=== PATIENT | female | born 1960 | race Caucasian/White ===

== ENCOUNTER 2018-06-25 19:20 | Inpatient (IN) | payer OTHER, BC ==
--- NOTE | 2018-06-25 19:53 | EDPHY ---
H & P Time Seen by Provider: 06/25/18 19:52 HPI/ROS: Chief complaint. Cough HPI. Patient is a 57-year-old female visiting from [place] with upper respiratory symptoms that began about a month ago. She was treated with Zithromax and seemed to get better. However she has been worse the past 2-3 days with cough and dyspnea on exertion. She uses an albuterol inhaler and has had some bloody sputum after the albuterol inhaler but otherwise has had a nonproductive cough. She has dyspnea on exertion. Slight fever. Nausea without vomiting or diarrhea or abdominal pain. She tells me she has a potassium way Star and has been taking extra potassium the last few days. She also has adrenal insufficiency and has been giving herself extra hydrocortisone. She has been traveling to [place] and in [place]. No known exposure to Infectious Disease. While in [place] she had 3 surgeries for osteomyelitis of the jaw ROS 10 systems were reviewed and negative with the exception of the elements mentioned in the history of present illness Past Medical/Surgical History: Low cortisol levels, hyper thyroid, pernicious anemia, osteomyelitis of the jaw Social History: , nonsmoker, no alcohol Smoking Status: Never smoked Physical Exam: General Appearance: Alert well-developed female moderate distress. Vital signs show temp 37.6 degrees, heart rate 117, respiratory rate 24 Eyes: Pupils equal and round no pallor or injection. ENT, tympanic membranes are normal. Pharynx without injection Respiratory: No retractions but tachypnea. Inspiratory expiratory rhonchi and possible rales on the right chest Cardiovascular: Regular rate and rhythm with tachycardia Gastrointestinal: Abdomen is soft and nontender, no masses, bowel sounds normal. Neurological: Awake and alert, sensory and motor exams grossly normal. Skin: Warm and dry, no rashes. Musculoskeletal: Neck is supple nontender. Extremities symmetrical, full range of motion. Psychiatric: Patient is oriented X 3, there is no agitation. Constitutional: Initial Vital Signs Temperature (C) 37.6 C 06/25/18 19:35 Heart Rate 117 H 06/25/18 19:35 Respiratory Rate 24 H 06/25/18 19:35 Blood Pressure 196/96 H 06/25/18 19:35 O2 Sat (%) 95 06/25/18 19:35 O2 Delivery Mode Room Air O2 (L/minute) 2 Allergies/Adverse Reactions: acetaminophen [From [place]] Allergy (Verified 06/25/18 19:42) ciprofloxacin [From Cipro] Allergy (Verified 06/25/18 19:42) codeine Allergy (Verified 06/25/18 19:42) epinephrine Allergy (Verified 06/25/18 19:42) gluten Allergy (Verified 06/25/18 19:42) hydrocodone [From [place]] Allergy (Verified 06/25/18 19:42) hydromorphone [From Dilaudid] Allergy (Verified 06/25/18 19:42) ibuprofen Allergy (Verified 06/25/18 19:42) latex Allergy (Verified 06/25/18 19:42) Penicillins Allergy (Verified 06/25/18 19:42) pineapple Allergy (Verified 06/25/18 19:42) prednisone Allergy (Verified 06/25/18 19:42) soy Allergy (Verified 06/25/18 19:42) Home Medications: Medication Instructions Recorded Albuterol 06/25/18 Robert Thyroid 06/25/18 Cytomel 06/25/18 Desmopressin 06/25/18 FOCALIN 06/25/18 Hydrocortisone 06/25/18 Naltrexone 06/25/18 Progesterone 06/25/18 Medical Decision Making - Diagnostics EKG Interpretation: EKG interpreted by me shows sinus tachycardia. Normal interval and axis. QRS is normal there is no significant ST elevation or depression. No arrhythmia. The rate is 105 Imaging Results: Imaging Impressions Chest X-Ray 06/25/18 20:08 Impression: Suspect bilateral pneumonia. Chest x-ray reviewed by me shows likely bilateral pneumonia Procedures: IV normal saline, monitor , oxygen supplementation DuoNeb updraft Septic workup ED Course/Re-evaluation: Troponin is normal, D-dimer is normal, lactate is normal. Patient test positive for flu A. She is given Tamiflu in the ED Re-evaluation at 9:45 p.m.. Patient and I discussed imaging and lab results. We discussed treatment plan including recommendation for admission. She expresses understanding and agreement I consulted and discussed case with Dr. Watt, hospitalist, who agrees to the admission - Data Points Laboratory Results: 06/25/18 06/25/18 06/25/18 20:52 20:52 20:48 POC Sodium 143 mEq/L mEq/L (135-145) POC Potassium 3.7 mEq/L mEq/L (3.3-5.0) POC Chloride 106.0 mEq/L mEq/L (97-110) POC Total CO2 25 mEq/L mEq/L (22-31) POC BUN 14 mg/dL mg/dL (7-23) POC Creatinine 0.8 mg/dL mg/dL (0.6-1.0) POC Glucose 104 mg/dL H mg/dL (70-100) POC Lactic Acid Ji 2.0 mmol/L mmol/L (0.7-2.1) POC Calcium 9.3 mg/dL mg/dL (8.5-10.4) POC Troponin I 0.02 ng/mL ng/mL (0.00-0.08) Medications Given: Discontinued Medications Albuterol/Ipratropium (Duoneb) 3 ml IH EDNOW ONE Stop: 06/25/18 20:08 Last Admin: 06/25/18 20:23 Dose: 3 ml Sodium Chloride (Ns) 1,000 mls @ 0 mls/hr IV ONCE ONE; Wide Open PRN Reason: Protocol Stop: 06/25/18 20:08 Last Admin: 06/25/18 20:45 Dose: 1,000 mls Point of Care Test Results: CBC CBC Collection Date 06/25/18 CBC Collection Time 20:40 WBC 8.33 RBC 4.96 HGB 13.6 HCT 42.8 PLT 290 Neut # 7.61 Neut 91.4 LYMPH # 0.47 LYMPH 5.6 MCV 86.3 Chemistry 06/25/18 06/25/18 20:52 20:48 POC Sodium 143 mEq/L mEq/L (135-145) POC Potassium 3.7 mEq/L mEq/L (3.3-5.0) POC Chloride 106.0 mEq/L mEq/L (97-110) POC Total CO2 25 mEq/L mEq/L (22-31) POC BUN 14 mg/dL mg/dL (7-23) POC Creatinine 0.8 mg/dL mg/dL (0.6-1.0) POC Glucose 104 mg/dL H mg/dL (70-100) POC Calcium 9.3 mg/dL mg/dL (8.5-10.4) POC Troponin I 0.02 ng/mL ng/mL (0.00-0.08) Blood Gas/Lactic Acid-Venous 06/25/18 20:52 POC Lactic Acid Ji 2.0 mmol/L mmol/L (0.7-2.1) D-Dimer D-Dimer Collection Date 06/25/18 D-Dimer Collection Time 20:40 D-Dimer (ng/ml) 100 Influenza PCR Flu Nasal Swab Collection Date 06/25/18 Flu Nasal Swab Collection Time 21:06 Influenza A Result Detected Influenza B Result Not Detected Departure - Departure Disposition: [facility] Inpatient Acute Clinical Impression: Influenza A Condition: Fair Referrals: NONE *PRIMARY CARE P,. [Primary Care Provider] - As per Instructions
[2018-06-25] MEDS ORDERED: IPRATROPIUM/ALBUTEROL 3 ML DEYVIAL IH ONE (20:07)
[2018-06-25] MEDS ORDERED: NS 1,000 ML IV ONE (20:07)
[2018-06-25] MEDS ORDERED: OSELTAMIVIR PHOSPHATE 75 MG CAP PO ONE (21:53)
--- NOTE | 2018-06-25 22:25 | CPEKG ---
Test Reason : OPEN Blood Pressure : / mmHG Vent. Rate : 105 BPM Atrial Rate : 106 BPM P-R Int : 153 ms QRS Dur : 081 ms QT Int : 331 ms P-R-T Axes : 059 029 051 degrees QTc Int : 438 ms Sinus tachycardia Probable left atrial enlargement Abnormal R-wave progression, early transition Confirmed by Lincoln Yee ([id number]) on 06/25/2018 10:24:22 PM Referred By: LINCOLN YEE Confirmed By:Lincoln Yee
[2018-06-25] MEDS ORDERED: traMADol 50 MG TAB PO ONE (23:00)
[2018-06-25] MEDS ORDERED: traMADol 50 MG TAB ONE (23:04)
[2018-06-26] MEDS ORDERED: ONDANSETRON DISINTEGRATING 4 MG TAB PO PRN (00:50)
[2018-06-26] MEDS ORDERED: diphenhydrAMINE 25 MG CAP PO PRN (00:50)
[2018-06-26] MEDS ORDERED: ONDANSETRON 4 MG/2 ML VIAL IVP PRN (00:50)
[2018-06-26] MEDS ORDERED: NS 1,000 ML IV SCH (01:00)
[2018-06-26] MEDS: HOMEOPATHIC PO PRN ×4 (03:01→10:15)
[2018-06-26] MEDS: traMADol 50 MG TAB PO PRN ×2 (03:08→10:17)
[2018-06-26] MEDS ORDERED: LORazepam 0.5 MG TAB PO PRN (04:17)
[2018-06-26] MEDS ORDERED: NAPROXEN SODIUM 220 MG TAB PO PRN (04:19)
[2018-06-26] MEDS ORDERED: THYROID 60 MG TAB PO SCH (04:30)
[2018-06-26] MEDS ORDERED: PROGESTERONE,MICR 100 MG CAP PO SCH ×2 (04:30→21:00)
[2018-06-26 05:36] LABS: PLATELET COUNT 252 10^3/uL (150-400)
--- NOTE | 2018-06-26 06:37 | GHP ---
[f rep st] HISTORY AND PHYSICAL DATE OF ADMISSION: 06/25/2018 Patient's PCP from out of state at [facility]. SOURCE: Patient provides history, appears reliable. EMR was reviewed and case discussed with accept [facility] hospitalist. CHIEF COMPLAINT: Shortness of breath and cough. HISTORY OF PRESENT ILLNESS: This is a pleasant 57-year-old female with a past medical history signif icant for adrenal insufficiency on a continuous hydrocortisone pump infusion, hypothyroidism, pernici ous anemia, recent hospitalization in [place] for osteomyelitis of the jaw with washout x3, who is tr aveling from [place] with a stop in [place] to see her daughter while she is on her route back to [facility]. The patient reports that she has been experiencing upper respiratory type symptoms for the past month. She did receive a ten-day course of azithromycin. Patient reports that she contract ed pneumonia following her second surgery on her jaw. She had developed osteomyelitis and required w ashout and resection. The patient reports acutely in the last 2-3 days that she has developed a coug h, dyspnea on exertion, and had one episode of blood-tinged sputum. Otherwise, she denies any produc tive cough. She does note that she has coughing fits that make it quite difficult to breathe. She r eports subjective fevers and nausea, but no vomiting, diarrhea, or abdominal pain. Patient reports t hat she has increased her hydrocortisone dosing to stress dosing approximately 350 mg daily through h er pump. 15 mg/hour. REVIEW OF SYSTEMS: Ten systems reviewed, negative except as noted above. ALLERGIES: Multiple including acetaminophen, ciprofloxacin patient developed tendinopathy, codeine, epinephrine, gluten, hydrocodone, hydromorphone, ibuprofen, latex, penicillins, pineapple, prednisone , and soy. The patient reports that she develops anaphylaxis to all IV blood pressure medications. Of note, patient reports that she previously tolerated cephalosporin without any issue. She was also placed on daily Rocephin via [facility] for her osteomyelitis. The patient also takes tramadol for her corinne n. PAST MEDICAL HISTORY: Significant for adrenal insufficiency with continuous hydrocortisone infusion on an insulin subcu pump, chronic babesiosis, hypothyroidism, pernicious anemia, osteomyelitis of the jaw, status post washout through sections and IV antibiotics, asthma, pneumonia, chronic lung diseas e for which patient is followed by Pulmonology in [place]. PAST SURGICAL HISTORY: Significant for bronchoscopy, lung biopsy, CT-guided I and D of the jaw for o steomyelitis, tonsillectomy, adenoidectomy, D and C multiple, left metacarpal . FAMILY HISTORY: Negative for lung disease. SOCIAL HISTORY: Patient is . She resides in [place], traveling with her . Tabatha uriarte lives here in [place]. She does not smoke or utilize any illicit drugs or marijuana . She drinks only occasionally. CODE STATUS: Full. PHYSICAL EXAMINATION: VITAL SIGNS: Upon arrival to the emergency department, blood pressure 196/96, heart rate 115, respiratory rate 24, O2 saturation 95% on room air, temperature 37.6. Vitals [facility] available: Blood pressure is 175/94, heart rate is 86, respiratory rate is 17, O2 saturation 96% on room air with temperature 36.9. GENERAL: No acute distress, pleasant, obese female is lying in bed, awake. HEAD: Normocephalic, atraumatic. EYES: Extraocular muscles grossly intact. Pupils eq ual, round, decreased reactive to light bilaterally, but symmetric. No scleral icterus, conjunctival injection. ENT: Mucous membranes appear moist. No oropharyngeal erythema or exudates. Dentition intact. NECK: Supple. Trachea midline. CV: Sinus tach low 90s with regular rhythm. RESPIRATORY: Patient with some coarse breath sounds bibasilarly. Diminished throughout. Intermittent congested -sounding cough without production. ABDOMEN: Obese, soft, nontender to palpation, no rebound, guard ing, or masses appreciated. : No suprapubic tenderness to palpation. No Romero catheter in place. MUSCULOSKELETAL: Generalized deconditioning, but moves all extremities while lying in bed. NEUROL OGIC: Grossly nonfocal. Moves all extremities. PSYCH: Affect slightly flat, but patient is pleasa nt, cooperative, awake, alert, and oriented x4. LABORATORY STUDIES: WBC 6.61, H and H are 12.5 and 39.6, MCV 87.6, platelet count is 252. Point of care sodium is 143, potassium 2.7, chloride is 106, CO2 is 25, BUN is 14, creatinine is 0.8, glucose 104, lactic 2.0, calcium is . Troponin 0.02. Initial CBC from [facility], WBC is 8.33, H and H a re 4.96 and 13.6, platelet count is 290, neutrophil percent 91.4%. Procalcitonin and repeat BMP are pending. Chest x-ray: Report reviewed showing bilateral pneumonia, mildly enlarged cardiac silhouet te. No effusions or pneumothorax. EKG reviewed myself showing sinus tachycardia in the 100s. QTc is 438. No acute ST changes. Flu A positive at [facility]. ASSESSMENT AND PLAN: Pleasant 57-year-old female with multiple medical issues who presents to the em ergency department today with complaints of cough, fever, and shortness of breath. 1. Influenza A. patient started on Tamiflu. We will plan to continue. She does have bilateral inf iltrates, which could be viral pneumonia. Will plan to repeat patient's laboratory studies this morn ing as well as a procalcitonin. She has no white count. Vitals are otherwise stable. Hold off on a ntibiotic therapy. Patient did just complete a course of azithromycin following hospital-acquired pn eumonia following her surgery. Patient without any hypoxia. 2. Asthma with exacerbation. The patient has increased her hydrocortisone dosing to 50 mg/hour. Wi ll continue with nebulizer treatments and Tamiflu as noted above. 3. Hypoxia. Continue with supplemental oxygen if needed. 4. Adrenal insufficiency. Patient has already increased her dosing to stress dose steroids as noted above. 5. Multiple allergies. The patient reports a brief history of mast cell activation issues particula rly in the setting of being given IV antihypertensives. She currently refuses any treatment for her elevated blood pressures, but she did note that as far as antibiotics go, she is able to tolerate cep halosporins as she just completed a course of Rocephin for her necrosis of the jaw. She also reports she developed red man syndrome with vancomycin and tendinopathy with ciprofloxacin but is able to to lerate minocycline and cephalosporins and azithromycin with additional options of antibiotic therapy if needed. 6. Hypothyroidism. Continue replacement. 7. Adrenal insufficiency. Continue patient's pump as noted above as well as resume her supporting m edications including progesterone and DDAVP. 8. Chronic pain. Resume naloxone when the patient's home medications are available given her dosing adjustments, multiple medications are compounded. Will plan to monitor patient's electrolytes close ly, replacement as needed. 9. Recent history of osteomyelitis of the jaw, status post washout and course of antibiotics. Chandu nue to monitor for any signs of infection recurrence. 10. Fluid, electrolyte, nutrition. Continue with some gentle IV fluid hydration. Monitor patient's electrolytes closely and sodium as noted above. Diet as tolerated. 11. Prophylaxis. SCDs. Patient declines anticoagulation as she reports increased bleeding risk. 12. Code status full. DISPOSITION: Patient admitted to inpatient status on the [facility] floor for close respiratory monitor ing and continued treatment in setting of patient's multiple chronic medical issues in setting of inf luenza infection. /[id number]/MODL
[2018-06-26] MEDS ORDERED: OSELTAMIVIR PHOSPHATE 75 MG CAP PO SCH (08:00)
[2018-06-26] MEDS ORDERED: ENOXAPARIN 40 MG/0.4 ML SYR SC SCH (09:00)
[2018-06-26] MEDS ORDERED: DESMOPRESSIN 0.1 MG TAB PO SCH ×2 (09:00→21:00)
[2018-06-26] MEDS ORDERED: traMADol 50 MG TAB PO PRN (09:32)
[2018-06-26] MEDS ORDERED: LORazepam 1 MG TAB PO PRN (09:32)
[2018-06-26] MEDS ORDERED: BENZONATATE 100 MG CAP PO PRN (09:35)
[2018-06-26] MEDS ORDERED: IPRATROPIUM/ALBUTEROL 3 ML DEYVIAL IH PRN (09:38)
[2018-06-26] MEDS ORDERED: CYANO/VITAMIN B12 1000 MCG/ML VIAL IM SCH (09:45)
[2018-06-26] MEDS ORDERED: NALTREXONE PO SCH (09:45)
[2018-06-26] MEDS ORDERED: DEXMETHYLPHENIDATE HCL 10 MG PO SCH (12:00)
[2018-06-26 12:19] VITALS: BP 163/92
--- NOTE | 2018-06-26 14:28 | ASDISCHSUM ---
Discharge Information Plan Status:Home with No Needs Medically Cleared to Leave: Discharge Date:06/26/2018 01:20 PM CM D/C Disposition:Home, Routine, Self-Care ADT D/C Disposition:Home, Routine, Self-Care Projected Discharge Date:06/26/2018 12:00 AM Transportation at D/C: Discharge Delay Reason: Follow-Up Date:06/26/2018 12:00 AM Discharge Slot: Final Diagnosis: Placement Information Patient Contact Information Contact Name:CHER Relationship:Daughter Address: Home Phone: City: [facility] Phone: [facility]/Zip Code: Email: Financial Information Financial Class:Medicare Primary Plan Desc:MEDICARE INPATIENT Primary Plan Number:[id number] Secondary Plan Desc: OUT OF [facility] Secondary Plan Number:[id number] Assessment Information Case Management Discharge Plan Note Case Management Discharge Discharge Order Complete? Answers: Yes Patient to Obtain Answers: via Family Medications Transportation Arranged Answers: Family/Friends Discharge Comments Notes: Pt treated for influenza and pnemonia. She is being discharged independently, family to transport. Date Signed: 06/26/2018 02:27 PM Electronically Signed By:ALLEN Armenta Intervention Information
--- NOTE | 2018-06-26 14:28 | ASMTLACE ---
LACE Length of stay for Answers: Less than 1 day current admission Acuity / Level of Answers: Yes Care: Did the patient have an inpatient admission? Comorbidities - select Answers: Opioid dependence all that apply / Chronic pain Other Notes: Hypothyroid # of Emergency department Answers: 1-2 visits in the last 6 months Score: 9 Date Signed: 06/26/2018 02:27 PM Electronically Signed By:ALLEN Armenta
--- NOTE | 2018-06-26 15:41 | GDS ---
[f rep st] DISCHARGE SUMMARY DISCHARGE DIAGNOSES: 1. Influenza A. 2. Adrenal insufficiency on continuous hydrocortisone infusion. 3. Chronic babesiosis. 4. Hypothyroid. 5. Pernicious anemia. 6. Osteomyelitis of the jaw status post washout and resections and intravenous antibiotics. 7. Asthma. 8. Pneumonia. 9. Chronic lung disease, followed by a wordpress developer in [place]. HISTORY OF PRESENT ILLNESS: A 57-year-old female with adrenal insufficiency on continuous hydrocortisone infusion, hypothyroidism, pernicious anemia, and recent hospitalization in [place] for osteomyelitis of the jaw status post washout x3. She was traveling from [place] with a stop in [place] to see her daughter. She then developed upper respiratory infections. She completed a 10 course of azithromycin. She said she contacted pneumonia following her 2nd surgery. Acutely, she reports cough and dyspnea on exertion for the past 2-3 days. One episode of blood-tinged sputum. Reports subjective fevers and nausea. HOSPITAL COURSE BY PROBLEM: 1. Influenza A: She was started on Tamiflu. She declined prescription at discharge. I did recommend given immunosuppression with chronic steroids, but she would like to do homeopathic treatment. She had bilateral infiltrates which were more consistent with a viral pneumonia confirmed by normal procalcitonin. 2. Asthma with exacerbation: She increased her hydrocortisone dosing to 50 mg an hour. She had some relief with the nebulizer treatment. 3. Acute hypoxic insufficiency: She is now stable on room air. 4. Adrenal insufficiency: Continue her steroid pump. 5. Hypothyroidism: [place] 6. Chronic pain: Resume home medications. 7. Recent osteomyelitis of the jaw: Status post washout and antibiotics. 8. Disposition: Patient would like to be discharged home with family. She is stable. NEW MEDICATIONS: None. FOLLOWUP: 1. Per wordpress developer. 2. Primary care physician. PHYSICAL EXAMINATION: Today, VITAL SIGNS: Temperature 37.2, blood pressure 163 /92, heart rate in the 90s, respirations 18, 92% on room air. GENERAL: Sitting up in bed, appears much brighter now compared to this morning. HEENT: PERRLA. Moist mucous membranes. CV: Regular rate and rhythm. LUNGS: Moving good air. Occasional wheeze. ABDOMEN: Soft, nontender, nondistended. Positive bowel sounds. : No Romero. MUSCULOSKELETAL: 5/5 upper and lower extremity strength. NEURO: 2 through 12 intact. PSYCH: Alert and oriented x3. TIME SPENT ON DISCHARGE: Greater than 30 minutes coordinating discharge, discussing followup plan and medications with patient. Daughter was at bedside. /[id number]/MODL [place]
[2018-06-26] MEDS ORDERED: Naltrexone 4.5mg 4.5 MG PO SCH (21:00)
[2018-06-27] MEDS ORDERED: THYROID 60 MG TAB PO SCH (06:00)
--- NOTE | 2018-06-27 16:27 | PDMN ---
Medical Necessity Medical necessity: Pt meets IP criteria per MD & MCG MG-SIC Systemic or Infectious Condition; est los >2 mn for eval/tx of Influenza A w/tachycardia, tachypnea, possible pneumonia & asthma exacerbation; requiring further monitoring, follow-up labs, IVFs & respiratory supportive care; hx recent osteomyelitis of jaw s/p washout on abx followed by recent pneumonia, adrenal insufficiency on continuous hydrocortisone pump infusion; per order & H&P 06/26/18
== END 2018-06-26 13:20 | disposition home or self-care (01) | DRG 194 ==
LOC: CED 19:20 → CEDHOLD 22:01 → F3E 06-26 00:25
PROVIDERS: ADMIT Internal Medicine; ATTEND Internal Medicine
DX: J10.08 Influenza due to other identified influenza virus with other specified pneumonia (principal); J45.901 Unspecified asthma with (acute) exacerbation; J12.9 Viral pneumonia, unspecified; E27.40 Unspecified adrenocortical insufficiency; B60.0 Babesiosis; R09.02 Hypoxemia; J98.4 Other disorders of lung; G89.29 Other chronic pain; D51.0 Vitamin B12 deficiency anemia due to intrinsic factor deficiency; E03.9 Hypothyroidism, unspecified; Z79.52 Long term (current) use of systemic steroids; Z79.51 Long term (current) use of inhaled steroids
CPT/HCPCS: 71046-PO; 80048-ER; 83605-ER; 84484-ER; 96360-ER

== ENCOUNTER 2018-06-27 17:43 | Inpatient (IN) | payer OTHER, BC ==
[2018-06-27] MEDS ORDERED: AZITHROMYCIN IV 500 MG in NS 250 ML IV ONE (18:25)
--- NOTE | 2018-06-27 18:30 | EDPHY ---
H & P Time Seen by Provider: 06/27/18 18:04 HPI/ROS: CHIEF COMPLAINT: "I am getting worse" HISTORY OF PRESENT ILLNESS: The patient is a 57-year-old female with a history of adrenal insufficiency on continuous hydrocodone infusion (increased distress dose), recent diagnosis of influenza a and bilateral infiltrates on chest x- ray. Patient was initially seen at [facility]. She was sent to [facility] and admitted overnight. Initially the doctor told her that she would need be placed on antibiotics. However, the morning hospitalist performed a procalcitonin level and told the patient that she did not need antibiotics. Patient states that since discharge she has been worsening. She has had increasing shortness of breath. Increased fatigue. She describes body aches. No nausea or vomiting. REVIEW OF SYSTEMS: 10 systems were reveiwed and are negative with the exception of the elements mentioned in the history of present illness. Past Medical/Surgical History: Includes influenza a, adrenal insufficiency on chronic hydrocortisone infusion, chronic babesiosis, hypothyroid, pernicious anemia, osteomyelitis, asthma, pneumonia Smoking Status: Never smoked Physical Exam: Vitals noted. Tachycardic GENERAL: Mild acute distress, alert. HEENT: Eyes normal to inspection, normal pharynx, no signs of dehydration. NECK: Normal, supple. RESPIRATORY: Scattered wheezing. No rales or rhonchi. No accessory muscle use. CVS: Regular rate and rhythm, no rubs, murmurs, or gallops. ABDOMEN: Soft, nontender, nondistended, no organomegaly. BACK: Normal to inspection, no CVA tenderness. SKIN: Normal color, no rash, warm, dry. No pallor. EXTREMITIES: No pedal edema, no calf tenderness, no Homans sign or cords, no joint swelling. NEURO/PSYCH: Alert and oriented, normal mood and affect, normal motor sensory exam. Constitutional: Initial Vital Signs Temperature (C) 37 C 06/27/18 17:50 Heart Rate 120 H 06/27/18 17:50 Respiratory Rate 19 06/27/18 17:50 Blood Pressure 191/103 H 06/27/18 17:50 O2 Sat (%) 93 06/27/18 17:50 O2 Delivery Mode Room Air Allergies/Adverse Reactions: acetaminophen [From [place]] Allergy (Verified 06/26/18 08:53) Anaphylaxis ciprofloxacin [From Cipro] Allergy (Verified 06/26/18 08:53) Rash/Tendon Rupture codeine Allergy (Verified 06/26/18 08:53) Fever/Rash epinephrine Allergy (Verified 06/26/18 08:53) Uncontrolablle Shakes gluten Allergy (Verified 06/25/18 19:42) hydrocodone [From [place]] Allergy (Verified 06/26/18 08:53) Anaphylaxis hydromorphone [From Dilaudid] Allergy (Verified 06/26/18 08:53) Other-Enter Comments ibuprofen Allergy (Verified 06/25/18 19:42) latex Allergy (Verified 06/26/18 08:53) Anaphylaxis Penicillins Allergy (Verified 06/26/18 08:53) Anaphylaxis pineapple Allergy (Verified 06/25/18 19:42) prednisone Allergy (Verified 06/26/18 08:53) Other-Enter Comments soy Allergy (Verified 06/25/18 19:42) lobster Allergy (Uncoded 06/26/18 08:53) Home Medications: Medication Instructions Recorded Albuterol [Proventil Inhaler HFA 1 - 2 puffs IH Q4H PRN 06/25/18 (*)] Desmopressin [DDAVP 0.1 mg (*)] 0.1 mg PO DAILY 06/25/18 Dexmethylphenidate HCl [FOCALIN XR] 10 mg PO BID@,12 06/25/18 Progesterone, Micronized 100 mg PO HS 06/25/18 [Progesterone] Thyroid [Katy Thyroid 60 MG (*)] 180 mg PO DAILY06 06/25/18 Advair Hfa 230-21 2 puffs IH BID 06/26/18 Cyanocobalamin [Vitamin B12 1,000 mcg IM .2XWEEK 06/26/18 1000MCG/ML (*)] Desmopressin [DDAVP 0.1 mg (*)] 0.2 mg PO HS 06/26/18 LORazepam [Ativan (*)] 1 mg PO HS PRN 06/26/18 Naltrexone 4.5mg 2.5 mg PO DAILY 06/26/18 Naltrexone 4.5mg 4.5 mg PO HS 06/26/18 Potassium Cl [Klor-Con 20 meq (*)] 6 - 12 tab PO AD 06/26/18 traMADol [Ultram 50 mg (*)] 50 mg PO Q6HRS PRN 06/26/18 Medical Decision Making - Diagnostics Imaging Results: Imaging Impressions Chest X-Ray 06/27/18 18:23 Impression: Interval increase in diffuse multifocal bilateral airspace consolidation. ED Course/Re-evaluation: The in the emergency department I discussed possible etiologies with the patient. I answered all her questions. Laboratory studies and chest x-ray were ordered. An IV was placed. Patient given normal saline 1 L IV for hydration. Due the patient wheezing a DuoNeb was ordered. Patient is currently on her hydrocortisone pump. She is currently taking stress dose hydrocortisone. Repeat vital signs. Blood pressure 166/109, 104, 24, 94% on room air Differential Diagnosis: My differential includes but is not limited to pneumonia, bronchitis, influenza , bacteremia, sepsis, dehydration, hypoxia - Data Points Laboratory Results: Laboratory Results 06/27/18 18:30 06/27/18 06/27/18 06/27/18 18:40 18:30 18:30 WBC RBC Hgb Hct MCV MCH MCHC RDW Plt Count MPV Neut % (Auto) Lymph % (Auto) [place] % (Auto) Eos % (Auto) Baso % (Auto) Nucleat RBC Rel Count Absolute Neuts (auto) Absolute Lymphs (auto) Absolute Monos (auto) Absolute Eos (auto) Absolute Basos (auto) Absolute Nucleated RBC Immature Gran % Immature Gran # Platelet Estimate PT 12.2 SEC SEC (12.0-15.0) INR 0.94 (0.83-1.16) APTT 24.6 SEC SEC (23.0-38.0) VBG Lactic Acid Sodium Pending Potassium Pending Chloride Pending Carbon Dioxide Pending Anion Gap Pending BUN Pending Creatinine Pending Estimated GFR Pending Glucose Pending Calcium Pending Total Bilirubin Pending POC Troponin I 0.02 ng/mL ng/mL (0.00-0.08) Troponin I Pending 06/27/18 06/27/18 18:30 18:30 WBC 4.78 10^3/uL 10^3/uL (3.80-9.50) RBC 5.19 10^6/uL 10^6/uL (4.18-5.33) Hgb 14.1 g/dL g/dL (12.6-16.3) Hct 43.2 % % (38.0-47.0) MCV 83.2 fL fL (81.5-99.8) MCH 27.2 pg L pg (27.9-34.1) MCHC 32.6 g/dL g/dL (32.4-36.7) RDW 13.9 % % (11.5-15.2) Plt Count 252 10^3/uL 10^3/uL (150-400) MPV 8.6 fL L fL (8.7-11.7) Neut % (Auto) Pending Lymph % (Auto) Pending [place] % (Auto) Pending Eos % (Auto) Pending Baso % (Auto) Pending Nucleat RBC Rel Count Pending Absolute Neuts (auto) Pending Absolute Lymphs (auto) Pending Absolute Monos (auto) Pending Absolute Eos (auto) Pending Absolute Basos (auto) Pending Absolute Nucleated RBC Pending Immature Gran % Pending Immature Gran # Pending Platelet Estimate Pending PT INR APTT VBG Lactic Acid 2.1 mmol/L mmol/L (0.7-2.1) Sodium Potassium Chloride Carbon Dioxide Anion Gap BUN Creatinine Estimated GFR Glucose Calcium Total Bilirubin POC Troponin I Troponin I Medications Given: Discontinued Medications Albuterol/Ipratropium (Duoneb) 3 ml IH EDNOW ONE Stop: 06/27/18 18:35 Last Admin: 06/27/18 18:47 Dose: 3 ml Ceftriaxone Sodium/Dextrose (Rocephin 1 Gm (Premix)) 50 mls @ 100 mls/hr IV EDNOW ONE PRN Reason: Protocol Stop: 06/27/18 18:53 Last Admin: 06/27/18 18:47 Dose: 50 mls Sodium Chloride (Ns) 1,000 mls @ 0 mls/hr IV ONCE ONE PRN Reason: Wide Open Stop: 06/27/18 18:33 Last Admin: 06/27/18 18:47 Dose: 1,000 mls Point of Care Test Results: Chemistry 06/27/18 18:40 POC Troponin I 0.02 ng/mL ng/mL (0.00-0.08) Departure - Departure Disposition: [facility] Inpatient Acute Clinical Impression: Influenza A Condition: Fair Referrals: LUIS SALCIDO [Other] - As per Instructions
[2018-06-27] MEDS ORDERED: NS 1,000 ML IV ONE (18:32)
[2018-06-27] MEDS ORDERED: IPRATROPIUM/ALBUTEROL 3 ML DEYVIAL IH ONE (18:34)
[2018-06-27 18:49] LABS: PLATELET COUNT 252 10^3/uL (150-400)
[2018-06-27 18:58] LABS: INR 0.94 (0.83-1.16); PROTIME(PATIENT) 12.2 SEC (12.0-15.0)
[2018-06-27] MEDS ORDERED: ACETAMINOPHEN 325 MG TAB PO PRN (19:43)
--- NOTE | 2018-06-27 19:58 | PDGENHP ---
History and Physical - Chief Complaint Cough, SOB., Fatigue - History of Present Illness Mari Velazco is a 57 yo F with a PMHx of adrenal insufficiency on continuous IV steroid infusion, recent Influenza A admitted 06/25-06/26, hypothyroidism, asthma who presents to [facility] for worsening SOB, cough, and fatigue. As above patient was just discharged from [facility] yesterday after being diagnosed with the flu. She was not discharged on Tamiflu or antibiotics (procalcitonin was negative at that time). She reports since discharge her symptoms have been worsening so she returned to ED this afternoon. She states she has been having increasing shortness of breath, body aches, productive cough, and worsening fatigue. She denies any chest pain, palpitations, edema, d/c, n/v. History Information - Allergies/Home Medication List Allergies/Adverse Reactions: acetaminophen [From [place]] Allergy (Verified 06/26/18 08:53) Anaphylaxis ciprofloxacin [From Cipro] Allergy (Verified 06/26/18 08:53) Rash/Tendon Rupture codeine Allergy (Verified 06/26/18 08:53) Fever/Rash epinephrine Allergy (Verified 06/26/18 08:53) Uncontrolablle Shakes gluten Allergy (Verified 06/25/18 19:42) hydrocodone [From [place]] Allergy (Verified 06/26/18 08:53) Anaphylaxis hydromorphone [From Dilaudid] Allergy (Verified 06/26/18 08:53) Other-Enter Comments ibuprofen Allergy (Verified 06/25/18 19:42) latex Allergy (Verified 06/26/18 08:53) Anaphylaxis Penicillins Allergy (Verified 06/26/18 08:53) Anaphylaxis pineapple Allergy (Verified 06/25/18 19:42) prednisone Allergy (Verified 06/26/18 08:53) Other-Enter Comments soy Allergy (Verified 06/25/18 19:42) lobster Allergy (Uncoded 06/26/18 08:53) Home Medications: Albuterol [Proventil Inhaler HFA (*)] 1 - 2 puffs IH Q4H PRN 06/25/18 [Last Taken Unknown] Desmopressin [DDAVP 0.1 mg (*)] 0.1 mg PO DAILY 06/25/18 [Last Taken 06/25/18] Dexmethylphenidate HCl [FOCALIN XR] 10 mg PO BID@06,12 06/25/18 [Last Taken 09/08 12:00] Progesterone, Micronized [Progesterone] 100 mg PO HS 06/25/18 [Last Taken ] Thyroid [Keller Thyroid 60 MG (*)] 180 mg PO DAILY06 06/25/18 [Last Taken ] Advair Hfa 230-21 2 puffs IH BID 06/26/18 [Last Taken 06/25/18] Cyanocobalamin [Vitamin B12 1000MCG/ML (*)] 1,000 mcg IM .2XWEEK 06/26/18 [Last Taken Unknown] Desmopressin [DDAVP 0.1 mg (*)] 0.2 mg PO HS 06/26/18 [Last Taken 06/24/18] LORazepam [Ativan (*)] 1 mg PO HS PRN 06/26/18 [Last Taken Unknown] Naltrexone 4.5mg 2.5 mg PO DAILY 06/26/18 [Last Taken 06/25/18] Naltrexone 4.5mg 4.5 mg PO HS 06/26/18 [Last Taken 06/24/18] Potassium Cl [Klor-Con 20 meq (*)] 6 - 12 tab PO AD 06/26/18 [Last Taken Unknown ] traMADol [Ultram 50 mg (*)] 50 mg PO Q6HRS PRN 06/26/18 [Last Taken 06/26/18] I have personally reviewed and updated: family history, medical history, social history, surgical history - Past Medical History asthma Additional medical history: Adrenal insufficiency, hypothyroidism - Surgical History Reports: no pertinent surgical hx - Family History Positive for: non-pertinent - Social History Smoking Status: Never smoked Review of Systems Review of Systems: ROS: 10pt was reviewed & negative except for what was stated in HPI & below Physical Exam Physical Exam: Temp Pulse Resp BP Pulse Ox 37 C 120 H 19 191/103 H 93 06/27/18 17:50 06/27/18 17:50 06/27/18 17:50 06/27/18 17:50 06/27/18 17:50 Constitutional: uncomfortable Eyes: PERRL Ears, Nose, Mouth, Throat: dry mucous membranes Cardiovascular: tachycardia, No JVD, No edema Respiratory: no respiratory distress, reduced air movement Gastrointestinal: soft, non-tender abdomen Skin: warm Musculoskeletal: full muscle strength Neurologic: AAOx3 Psychiatric: interacting appropriately Lab Data & Imaging Review 06/27/18 18:30 06/27/18 18:30 WBC 4.78 10^3/uL (3.80-9.50) 06/27/18 18:30 RBC 5.19 10^6/uL (4.18-5.33) 06/27/18 18:30 Hgb 14.1 g/dL (12.6-16.3) 06/27/18 18:30 Hct 43.2 % (38.0-47.0) 06/27/18 18:30 MCV 83.2 fL (81.5-99.8) 06/27/18 18:30 MCH 27.2 pg (27.9-34.1) L 06/27/18 18:30 MCHC 32.6 g/dL (32.4-36.7) 06/27/18 18:30 RDW 13.9 % (11.5-15.2) 06/27/18 18:30 Plt Count 252 10^3/uL (150-400) 06/27/18 18:30 MPV 8.6 fL (8.7-11.7) L 06/27/18 18:30 Neut % (Auto) 93.3 % (39.3-74.2) H 06/27/18 18:30 Lymph % (Auto) 4.2 % (15.0-45.0) L 06/27/18 18:30 [place] % (Auto) 2.1 % (4.5-13.0) L 06/27/18 18:30 Eos % (Auto) 0.0 % (0.6-7.6) L 06/27/18 18:30 Baso % (Auto) 0.0 % (0.3-1.7) L 06/27/18 18:30 Nucleat RBC Rel Count 0.0 % (0.0-0.2) 06/27/18 18:30 Absolute Neuts (auto) 4.46 10^3/uL (1.70-6.50) 06/27/18 18:30 Absolute Lymphs (auto) 0.20 10^3/uL (1.00-3.00) L 06/27/18 18:30 Absolute Monos (auto) 0.10 10^3/uL (0.30-0.80) L 06/27/18 18:30 Absolute Eos (auto) 0.00 10^3/uL (0.03-0.40) L 06/27/18 18:30 Absolute Basos (auto) 0.00 10^3/uL (0.02-0.10) L 06/27/18 18:30 Absolute Nucleated RBC 0.00 10^3/uL (0-0.01) 06/27/18 18:30 Immature Gran % 0.4 % (0.0-1.1) 06/27/18 18:30 Immature Gran # 0.02 10^3/uL (0.00-0.10) 06/27/18 18:30 RBC/WBC/PLT Morphology TNP 06/27/18 18:30 Platelet Estimate TNP 06/27/18 18:30 PT 12.2 SEC (12.0-15.0) 06/27/18 18:30 INR 0.94 (0.83-1.16) 06/27/18 18:30 APTT 24.6 SEC (23.0-38.0) 06/27/18 18:30 VBG Lactic Acid 2.1 mmol/L (0.7-2.1) 06/27/18 18:30 Sodium 137 mEq/L (135-145) 06/27/18 18:30 Potassium 4.2 mEq/L (3.5-5.2) 06/27/18 18:30 Chloride 100 mEq/L (97-110) 06/27/18 18:30 Carbon Dioxide 27 mEq/l (22-31) 06/27/18 18:30 Anion Gap 10 mEq/L (6-14) 06/27/18 18:30 BUN 15 mg/dL (7-23) 06/27/18 18:30 Creatinine 0.6 mg/dL (0.6-1.0) 06/27/18 18:30 Estimated GFR > 60 06/27/18 18:30 Glucose 195 mg/dL (70-100) H 06/27/18 18:30 Calcium 9.3 mg/dL (8.5-10.4) 06/27/18 18:30 Total Bilirubin 0.5 mg/dL (0.1-1.4) 06/27/18 18:30 POC Troponin I 0.02 ng/mL (0.00-0.08) 06/27/18 18:40 Troponin I 0.019 ng/mL (0.000-0.034) 06/27/18 18:30 Assessment & Plan Assessment: Bacterial Pneumonia - Presented with Influenza A on 06/25, found to have b/l infiltrates at that time - Given negative procalc on last admission, was not d/c on abx yesterday - CXR performed on this admission with worsening b/l infiltrates - Afebrile on admission, WBC 4.7 with neutrophil predominence, LA 2.1, tachycardic 120's, normotensive - S/p Ceftriaxone and Azithromycin in ED, will continue for now - Continue mIVF overnight Influenza A (Acute) - Positive on last admission - Started on Tamiflu however patient declined on discharge due to onset of symptoms >72 hours - Will hold off on Tamiflu for now, supportive care with IVF Tachycardia - In setting of CAP as above, not meeting other SIRS criteria - S/p 1L IVF bolus in ED, will continue IVF @ 100 ml/hr overnight - Continue to monitor Adrenal Insufficiency - Continue patient's home infusion Hypothyroidism - Continue home medications pending med rec Asthma - Reports mild, no wheezing appreciated on exam - Continue home Advair BID upon med rec - Will order nebulizers PRN FEN: mIVF, Regular DVT PPx: Lovenox Code: FULL Dispo: Admit to Medicine
[2018-06-27] MEDS ORDERED: NS 1,000 ML IV SCH (20:15)
[2018-06-27] MEDS ORDERED: LORazepam 1 MG TAB PO PRN (21:51)
[2018-06-27] MEDS ORDERED: ALBUTEROL 60 PUFFS/8 GM MDI IH PRN (21:51)
[2018-06-27] MEDS: ONDANSETRON 4 MG/2 ML VIAL IVP PRN (22:54)
[2018-06-27] MEDS: traMADol 50 MG TAB PO PRN (23:59)
[2018-06-28] MEDS: IPRATROPIUM/ALBUTEROL 3 ML DEYVIAL IH PRN ×4 (00:20→15:37)
[2018-06-28] MEDS: traMADol 50 MG TAB PO PRN ×3 (06:04→18:14)
[2018-06-28] MEDS: THYROID 60 MG TAB PO SCH (06:04)
[2018-06-28] MEDS: ENOXAPARIN 40 MG/0.4 ML SYR SC SCH (08:29)
[2018-06-28] MEDS: DEXMETHYLPHENIDATE HCL 10 MG PO SCH ×3 (08:35→12:16)
[2018-06-28] MEDS ORDERED: BENZONATATE 100 MG CAP PO PRN (08:37)
[2018-06-28] MEDS: ADVAIR IH SCH ×3 (08:56→21:35)
[2018-06-28] MEDS: NALTREXONE PO SCH ×2 (09:00→12:16)
[2018-06-28] MEDS ORDERED: hydrALAZINE 20 MG/ML VIAL IVP PRN (11:55)
[2018-06-28] MEDS: DESMOPRESSIN 0.1 MG TAB PO SCH ×2 (12:36→22:13)
--- NOTE | 2018-06-28 13:19 | PDMN ---
Medical Necessity Medical necessity: Pt meets IP criteria per & MCG M-282; est los >2 mn for eval/tx of bacterial pneumonia w/tachycardia, tachypnea, Influenza A & asthma exacerbation; admit for further monitoring, IV abx, IVFs & respiratory supportive care; hx recent hospitalization w/similar presentation-dc'd 06/26; recent osteomyelitis of jaw s/p washout on abx, adrenal insufficiency on continuous hydrocortisone pump infusion; per H&P & order 06/27/18
[2018-06-28] MEDS: NS 1,000 ML IV SCH (13:38)
[2018-06-28] MEDS: GUAIFENESIN/DM 10 ML UDCUP PO PRN ×3 (13:46→15:17)
--- NOTE | 2018-06-28 14:38 | HOSPPROG ---
Hospitalist Progress Note Assessment/Plan: #Viral vs. post-viral PNA -refused Tamiflu at last DC. Still not convinced bacterial given afebrile, no leukocytosis -rec short abx coverage. Counseled on C diff risks #Influenza A (Acute) - Positive on last admission - Started on Tamiflu however patient declined on discharge due to onset of symptoms >72 hours - Will hold off on Tamiflu for now, supportive care with IVF #Hypertensive urgency: SBP >220. She attributes to steroids. -declines antihypertensives. I counseled her on risks of CVA/ME and she accepts risks #Asthma exacerbation: Duonebs, Advair #Tachycardia - In setting of CAP as above, not meeting other SIRS criteria - S/p 1L IVF bolus in ED, will continue IVF @ 100 ml/hr overnight - Continue to monitor #Adrenal Insufficiency -has continuous pump; of runs out equivalent dose Solumedrol 60mg q8hr (pharm calculated) Hypothyroidism - Continue home medications pending med rec FEN: IVF, Regular DVT PPx: Lovenox Code: FULL inpatient admission for DuoNeb, telemetry Subjective: No CHAPPELL. Pressure over mid-chest Objective: Vital Signs Temp Pulse Resp BP Pulse Ox 36.6 C 106 H 14 204/114 H 92 06/28/18 11:38 06/28/18 11:38 06/28/18 11:38 06/28/18 14:16 06/28/18 11:38 06/27/18 06/28/18 06/29/18 05:59 05:59 05:59 Intake Total 1800 1257 Balance 1800 1257 PT 12.2 SEC (12.0-15.0) 06/27/18 18:30 INR 0.94 (0.83-1.16) 06/27/18 18:30 - Time Spent With Patient Time Spent with Patient: greater than 35 minutes Time Spent with Patient: Greater than 35 minutes spent on this patients care, greater than 50% of time spent counseling, educating, and coordinating care regarding the above mentioned plan. - Physical Exam Constitutional: obese Eyes: PERRL, other (jessy cheeks) Ears, Nose, Mouth, Throat: moist mucous membranes Cardiovascular: tachycardia Respiratory: no respiratory distress, No expiratory wheeze, No inspiratory crackles Gastrointestinal: normoactive bowel sounds, soft, non-tender abdomen Genitourinary: no bladder fullness Skin: warm Musculoskeletal: full muscle strength Neurologic: AAOx3, CN II-XII Intact Psychiatric: interacting appropriately ICD10 Worksheet Patient Problems: Problems Problem Status Onset Influenza A Acute
--- NOTE | 2018-06-28 16:35 | ASMTCMCOM ---
CM Note CM Note Notes: Spoke with pt and RN in the room. Pt here visiting daughter from [place] and admitted for influenza A and possible post viral PNA. Pt has steroid pump for Adrenal insufficiency. PT and OT both cleared pt for discharge home independently. CM to follow. D/C Plan: Independent to daughter's home Date Signed: 06/28/2018 04:34 PM Electronically Signed By:Dorcas Tolbert
[2018-06-28] MEDS ORDERED: AZITHROMYCIN IV 500 MG in NS 250 ML IV SCH (19:00)
[2018-06-28] MEDS ORDERED: POTASSIUM CL 20 MEQ TAB PO ONE (19:52)
[2018-06-28] MEDS: PROGESTERONE,MICR 100 MG CAP PO SCH (22:14)
[2018-06-28] MEDS ORDERED: ESTRIOL TP SCH (23:30)
[2018-06-28] MEDS ORDERED: TESTOSTERONE TP SCH (23:30)
[2018-06-28] MEDS ORDERED: ESTRADIOL TP SCH (23:30)
[2018-06-28] MEDS ORDERED: PROGESTERONE TP SCH (23:30)
[2018-06-28] MEDS: Naltrexone 4.5mg 4.5 MG PO SCH (23:56)
[2018-06-29] MEDS: IPRATROPIUM/ALBUTEROL 3 ML DEYVIAL IH PRN ×4 (05:01→23:12)
[2018-06-29] MEDS: GUAIFENESIN/DM 10 ML UDCUP PO PRN ×3 (05:37→23:06)
[2018-06-29] MEDS: DEXMETHYLPHENIDATE HCL 10 MG PO SCH ×2 (06:42→12:25)
[2018-06-29] MEDS: THYROID 60 MG TAB PO SCH (06:42)
[2018-06-29] MEDS ORDERED: PROTOCOL POTASSIUM 1 DOSE MISC PRN (07:14)
--- NOTE | 2018-06-29 08:22 | HOSPPROG ---
Hospitalist Progress Note Assessment/Plan: #Viral vs. post-viral PNA - afebrile, no leukocytosis -short course atbx. Counseled on C diff risks -check PCT #Influenza A (Acute) - diagnosed prior admission, received tamiflu which pt declined at dc, did not complete course - Defer tamiflu at this point - supportive care with IVF #Hypoxemia 2/2 above - 2 LPM, no respiratory distress - wean O2 as able #Hypertensive urgency: SBP >220. She attributes to steroids. Says she has anaphylaxis to all anti-hypertensives. - declines antihypertensives. She was counseled on risks of CVA/MN and she accepts risks #Asthma exacerbation: cont steroids, Duonebs, Advair #Tachycardia - ?due to PNA or possibly increased steroid dose, no other SIRS, hasn't improved much with IVF's - cont IVF's - check d dimer, CTA if positive to r/o PE - check TSH to ensure not overtreated as cause of tachycardia - Continue to monitor #Adrenal Insufficiency - on continuous solucortef pump, pt says she is giving herself stress dose - cont home pump Hypothyroidism - cont armour thyroid, check TSH FEN: IVF, Regular DVT PPx: Lovenox Code: FULL Dispo: cont inpt due to ongoing O2 needs, tachycardia and hypertension Subjective: Pt feels a little better today. Still SOB, endorses pleuritic pain. No CP or pressure. No fevers. Appetite not great, but improving. Objective: Vital Signs Temp Pulse Resp BP Pulse Ox 36.8 C 109 H 14 188/100 H 95 06/29/18 07:36 06/29/18 07:36 06/29/18 07:36 06/29/18 07:36 06/29/18 07:36 Laboratory Results 06/28/18 15:50 06/28/18 06/29/18 06/30/18 05:59 05:59 06:59 Intake Total 1800 1562 Output Total 1400 Balance 1800 162 PT 12.2 SEC (12.0-15.0) 06/27/18 18:30 INR 0.94 (0.83-1.16) 06/27/18 18:30 - Physical Exam Constitutional: no apparent distress Eyes: PERRL Ears, Nose, Mouth, Throat: moist mucous membranes Cardiovascular: regular rate and rhythym Respiratory: no respiratory distress, inspiratory crackles Gastrointestinal: normoactive bowel sounds, soft, non-tender abdomen Skin: warm Musculoskeletal: full muscle strength Neurologic: AAOx3 Psychiatric: interacting appropriately ICD10 Worksheet Patient Problems: Problems Problem Status Onset Influenza A Acute
[2018-06-29] MEDS: ADVAIR IH SCH ×2 (08:32→22:57)
[2018-06-29] MEDS: NALTREXONE PO SCH (08:35)
[2018-06-29] MEDS: DESMOPRESSIN 0.1 MG TAB PO SCH ×2 (08:36→20:37)
[2018-06-29] MEDS: ENOXAPARIN 40 MG/0.4 ML SYR SC SCH ×2 (08:36→09:07)
[2018-06-29] MEDS: NS 1,000 ML IV SCH (09:13)
[2018-06-29] MEDS: ONDANSETRON DISINTEGRATING 4 MG TAB PO PRN ×2 (09:13→18:46)
[2018-06-29] MEDS ORDERED: IOPAMIDOL (ISOVUE 370) 100 ML BTL IV ONE (10:24)
[2018-06-29] MEDS ORDERED: POTASSIUM CL 20 MEQ TAB PO ONE (16:00)
[2018-06-29] MEDS ORDERED: POTASSIUM CL 20 MEQ/15 ML UDCUP PO ONE (17:15)
[2018-06-29] MEDS: traMADol 50 MG TAB PO PRN (18:45)
[2018-06-29] MEDS: PROGESTERONE,MICR 100 MG CAP PO SCH (20:36)
[2018-06-29] MEDS: AZITHROMYCIN IV 500 MG in NS 250 ML IV SCH (20:44)
[2018-06-29] MEDS: Naltrexone 4.5mg 4.5 MG PO SCH (20:57)
[2018-06-30] MEDS ORDERED: HYDROCORTISONE 100 MG/2 ML VIAL IVP ONE (03:08)
[2018-06-30] MEDS: NS 1,000 ML IV SCH (03:47)
[2018-06-30] MEDS: IPRATROPIUM/ALBUTEROL 3 ML DEYVIAL IH PRN ×2 (04:15→08:18)
[2018-06-30] MEDS: DEXMETHYLPHENIDATE HCL 10 MG PO SCH ×2 (07:13→12:23)
[2018-06-30] MEDS: GUAIFENESIN/DM 10 ML UDCUP PO PRN (07:13)
[2018-06-30] MEDS ORDERED: POTASSIUM CL 20 MEQ/15 ML UDCUP PO ONE (07:45)
[2018-06-30] MEDS: diphenhydrAMINE 25 MG CAP PO PRN ×2 (08:05→08:15)
[2018-06-30] MEDS: ADVAIR IH SCH ×2 (08:23→20:12)
[2018-06-30] MEDS: DESMOPRESSIN 0.1 MG TAB PO SCH ×2 (08:23→21:28)
[2018-06-30] MEDS ORDERED: FUROSEMIDE 40 MG/4 ML VIAL IVP ONE (08:34)
[2018-06-30] MEDS ORDERED: POTASSIUM CL 20 MEQ TAB PO ONE ×2 (08:36→09:00)
[2018-06-30] MEDS: ENOXAPARIN 40 MG/0.4 ML SYR SC SCH (08:39)
[2018-06-30] MEDS: NALTREXONE PO SCH (08:40)
--- NOTE | 2018-06-30 08:42 | HOSPPROG ---
Hospitalist Progress Note Assessment/Plan: #AHRF - pt with increased O2 needs and respiratory distress this am, on 9-10 LPM. CXR this am pers reviewed/interp- increased bibasilar infiltrates. Viral vs. post-viral PNA in setting of Influenza. Also suspect component of volume overload this am, could be hastened by her profound hypertension which she won' t allow us to treat and may be self-induced by her self administered high dose IV hydrocortisone. PCT neg. ABG ok. -short course atbx, day 3 ceftriaxone/azithro -IV Lasix now -check echo and bnp -could try bipap if status worsens -pulm consult #Influenza A (Acute) - diagnosed prior admission, received tamiflu which pt declined at dc, did not complete course - Start tamiflu - cont nebs, supportive care #Asthma exacerbation: cont steroids, Duonebs, Advair #Hypertensive urgency: SBP >220. She attributes to steroids and I agree her egregious IV hydrocortisone self-dosing is causing harm. Says she has anaphylaxis to all anti-hypertensives. - declines antihypertensives. She was counseled on risks of CVA/MA and she accepts risks - will confiscate her IV hydrocortisone due to self dosing and potential harm, see below #Tachycardia - ?due to PNA or possibly increased steroid dose, no other SIRS, hasn't improved much with IVF's - holding thyroid meds, steroid dose adjustment as below - Continue to monitor #Adrenal Insufficiency - on continuous solucortef pump Rx'd by [facility] in [place]. Pt says she is giving herself stress dose, taking up to 600 mg daily. She has vials of hydrocortisone in her room and is dosing herself without my orders. I' m concerned she is causing herself harm with persistent hypertension and tachycardia, possibly contributing to pulmonary edema. - d/w dr. raina dominique, loss prevention specialist in [place] (partner of pt's primary endo Dr. Jamal Phillips). Per his notes, she takes 36 mg / d thru pump and is instructed to increase to 84 mg for sick dose. they acknowledge she is self dosing in [place] and they are also concerned she is causing self harm. - Dr. Dominique recommends d/c'ing / confiscating pump and her home HC vials and order IV HC 100 mg q8h - will work with pt and provide 25 mg HC q2h, which is same dose as 100 q8h, but more frequent as she believes she is a rapid metabolizer Hypothyroidism - TSH undetectable, discussed with endo - endo recommends stopping armour thyroid and changing to levothyroxine 125 mcg daily, will hold today, start tomorrow - recheck TSH in am - check TFT's, expect they will be elevated. Dr. Phillips notes he has been trying to convince her to dose reduce, but she has refused. FEN: IVF, Regular DVT PPx: Lovenox Code: FULL Dispo: cont inpt due to ongoing O2 needs, tachycardia, hypertension, and respiratory failure. Transfer to SDU. If pt opts to leave AMA, will advise against this, psychotherapist counselor on risk of from respiratory failure / hypoxemia, MA or CVA. I would try to provide O2 at d/c if she leaves AMA for harm reduction purposes. 45 minutes critical care Additional 75 minutes spent coordinating care, obtaining junior legal secretary ( discussed with June Verma), and reviewing case with specialty care Subjective: Pt had a STAT team call this am. She thought she was having anaphylaxis to robitussin. She remains profoundly hypertensive and tachycardic. No neurodeficits. No fevers/chills. Increased O2 requirement to 15 LPM. She endorses orthopnea. Coughing a bit. No CP, +SOB Objective: Vital Signs Temp Pulse Resp BP Pulse Ox 36.7 C 108 H 26 H 203/98 H 92 06/30/18 07:50 06/30/18 08:23 06/30/18 07:50 06/30/18 08:07 06/30/18 08:23 Laboratory Results 06/30/18 05:38 06/30/18 05:18 06/29/18 06/30/18 07/01/18 04:59 05:59 05:59 Intake Total 1155 Output Total Balance 1155 PT 12.2 SEC (12.0-15.0) 06/27/18 18:30 INR 0.94 (0.83-1.16) 06/27/18 18:30 - Physical Exam Constitutional: no apparent distress Eyes: PERRL Ears, Nose, Mouth, Throat: moist mucous membranes Cardiovascular: tachycardia Respiratory: reduced air movement, inspiratory crackles, respiratory distress Gastrointestinal: normoactive bowel sounds, soft, non-tender abdomen Skin: warm Musculoskeletal: full muscle strength Neurologic: AAOx3, other (tremulous) Psychiatric: interacting appropriately ICD10 Worksheet Patient Problems: Problems Problem Status Onset Influenza A Acute
[2018-06-30] MEDS ORDERED: diphenhydrAMINE 25 MG CAP PO ONE (08:45)
[2018-06-30] MEDS: OSELTAMIVIR PHOSPHATE 75 MG CAP PO SCH ×2 (08:54→18:21)
[2018-06-30] MEDS ORDERED: THYROID 60 MG TAB PO SCH (09:00)
[2018-06-30] MEDS: HYDROCORTISONE 100 MG/2 ML VIAL IVP SCH ×7 (10:55→22:45)
[2018-06-30] MEDS ORDERED: HYDROCORTISONE 100 MG/2 ML VIAL IVP SCH ×2 (11:00)
--- NOTE | 2018-06-30 12:17 | ECHO ---
[email or web address] [address] [address] Main: [phone] Echocardiography Examination Transthoracic Name: TREVER DONALDSON MR#: [id number] Study Date: 06/30/2018 Study Time: 08:18 AM Date of : 1960 Age: 57 year(s) Height: 167.6 cm (66 in.) Weight: 83.92 kg (185 lb.) BSA: 1.93 m2 Gender: Female Examination: Echo Indication: ARDMS vs. pulmonary edema Image Quality: Adequate Contrast: Requested by: ?? BP: / Heart Rate: Rhythm: Indication: ARDMS vs. pulmonary edema Procedure Staff Referring Physician: Record Center Coordinator: Caity Grier RDCS Reading Physician: Jhon Hernandez MD Requesting Provider: Indication: ARDMS vs. pulmonary edema Measurements Chambers AV/MV Label Value Normal Value Label Value Normal Value IVSd, 2D 1 cm (0.6cm - 1.1cm) AV PGmean 6 mmHg LVDd, 2D 5 cm (3.9cm - 5.3cm) AV Vmax, Curve 1.6 m/s LVDs, 2D 2.7 cm (2.1cm - 4cm) MV A Vmax 0.8 m/s LVEF, 2D 78 % (54% - 74%) MV E' lateral 0.09 m/s LVEF, BP 82 % (55% - 70%) MV E' mean 0.06 m/s LVEF, MOD2 68 % (55% - 70%) MV E' septal 0.04 m/s LVEF, MOD4 90 % (55% - 70%) MV E Vmax 0.48 m/s LVPWd, 2D 1 cm MV E/A 0.6 LA Area, A2C 17.7 cm2 (0cm2 - 20cm2) MV E/E' lateral 5.6 LA Volume, A2C 51 ml (22ml - 52ml) MV E/E' mean 7.38 LADs, 2D 3.2 cm (2.7cm - 3.8cm) MV E/E' septal 12.4 (0.5 - 1.7) Additional Vessels Label Value Normal Value AoAsc 3.4 cm AoRoot, MM 3.4 cm (2.2cm - 3.7cm) Conclusions Left ventricular systolic ejection fraction was normal Patient: TREVER DONALDSON Study Date: 06/30/2018 Page 1 of 2 08:18 AM Mild concentric LVH Normal atrial dimensions Grossly normal mitral and aortic valves (trileaflet) Mild TR with RVSP was normal Normal aortic dimensions Findings Left Ventricle: E/a wave reversal.. Left ventricle is normal in size. Global hypercontractility of the left ventricle. There is mild concentric left ventricular hypertrophy. There is no regional wall motion abnormalities. IVS: The septum is intact. Right Ventricle: Normal size right ventricle. Right ventricular wall thickness is normal. Right ventricular systolic function is normal. Left Atrium: The left atrium is normal in size. IAS: Normal appearing atrial septum. Right Atrium: The right atrium is normal in size. Mitral Valve: Normal . No mitral valve stenosis. Aortic Valve: No aortic valve regurgitation. There is no aortic stenosis. There is aortic sclerosis present. Tricuspid Valve: Tricuspid valve leaflets are normal in appearance and function. Mild tricuspid regurgitation. No tricuspid valve stenosis. Pulmonary artery pressure normal. Pulmonic Valve: Pulmonic leaflets exhibit normal cuspal separation. No pulmonic valve regurgitation is evident. There is no pulmonic valve stenosis. Aorta: The aorta is normal. The aortic root size in M-mode measures 3.4 cm. The ascending aorta measures 3.4 cm. Aorta Measurements AoRoot, MM is 3.4 cm. Pulmonary Artery: The pulmonary artery morphology appears normal. IVC: The inferior vena cava is normal in size and course. Pericardium: A pericardial fat pad is present. No pericardial effusion. No pleural effusion present. Exam Details Procedure Ordered: Echo Procedure Status: Routine study Image Quality: Adequate Facility Location: Cardiac Echo 1 (No Signature Object) Patient: TREVER DONALDSON Study Date: 06/30/2018 Page 2 of 2 08:18 AM [id number]
[2018-06-30] MEDS: IPRATROPIUM/ALBUTEROL 3 ML DEYVIAL IH SCH ×3 (13:20→20:12)
--- NOTE | 2018-06-30 16:10 | GCON ---
[f rep st] CONSULTATION PULMONARY CRITICAL CARE CONSULTATION DATE OF CONSULTATION: 06/30/2018 REASON FOR CONSULTATION: Bilateral atypical pneumonia. HISTORY: The patient is a 57-year-old. She was recently in the hospital overnight: 06/25-06/26. S he had acute influenza A bronchopneumonia. She was started on Tamiflu in the hospital, but refused t his on discharge. Chest x-ray did show some bilateral pulmonary infiltrates. Overnight following di scharge, she continued to have increasing shortness of breath and cough. She had increasing fatigue and general body aches. She thus came back to the emergency department on 06/27 and was admitted to a medical-surgical bed. Chest x-ray showed increasing bilateral pulmonary infiltrates on admission. She continued to decline Tamiflu. She was started on ceftriaxone and azithromycin. She was moved t o the intensive care unit this morning secondary to increasing oxygen requirements to [address] sca n of the chest was done with contrast. There is no evidence of thromboembolic disease. Bilateral pa tchy pulmonary infiltrates are present. Cardiac echo was done as well. Left ventricular function is normal as is right ventricular function. Pulmonary artery pressures are normal. She is being treat ed with duo nebs, azithromycin and ceftriaxone, and steroids. She is on chronic hydrocortisone by a pump and states that she has rapid metabolization of this drug. Her pump has been discontinued and s he is receiving 25 mg of hydrocortisone every 2 hours intravenously. The patient is from [place]. She and her were traveling through the [place] area to vi sit a daughter on their way back to [place] from [place]. She was there for a surgical procedu re for a jaw osteomyelitis. The patient did develop upper respiratory symptoms approximately 2 weeks ago. She was put on azithromycin orally at that time. She does have a history of asthma. She is f ollowed in [place] for this. She apparently has some chronic restrictive lung disease as well secondary to underlying neurologic issues. She has had a pulmonary nodule biopsied in the past. Thi s apparently was consistent with a granuloma. She has adrenal insufficiency and is on the hydrocorti sone pump, a history of hypothyroidism, anemia, osteomyelitis of the jaw, chronic babesiosis, hypothy roidism, anxiety, and takes DDAVP orally twice a day. DRUG ALLERGIES: She has multiple drug allergies as listed on her JUN. These include multiple antibi otics, prednisone, narcotics, antihypertensive medications, etc. SOCIAL HISTORY: The patient is . Her is supportive. They are traveling from [place] to their home in [place]. Daughter lives in the [facility]. 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 FAMILY HISTORY: Noncontributory. REVIEW OF SYSTEMS: A 10-point review of systems is negative except as outlined in HPI and past medic al history. PHYSICAL EXAMINATION: GENERAL: Reveals a somewhat somnolent, obese woman who is lying in bed. She appears comfortable. Oxy mask is in place. She does respond, but keeps her eyes closed. VITAL SIGN S: Blood pressure is 140/90, heart rate approximately 100 with sinus rhythm on the monitor. Respira tory rate is 20. On 15 L of oxygen, saturations are 96%. She is afebrile. HEENT: Remarkable for m oist mucous membranes. NECK: There is no jugular venous distention or lymphadenopathy, no thyromega ly. PULMONARY: The chest reveals decreased breath sounds and excursions bilaterally. There are sca ttered fine rales anteriorly and posteriorly. Expiratory phase appears prolonged. There is no signi ficant wheezing and no keenan rhonchi. With cough there is central congestion present. HEART: Tachy cardic. Heart tones are distant. There are no gallops, no significant murmurs. ABDOMEN: Overweigh t, soft, nontender. Bowel sounds are present. EXTREMITIES: Unremarkable for edema. Sequential com pression devices are in place. There is no Romero catheter. She is using the bedside commode. Recorded urine output appears excelle nt. DATABASE: Radiologic studies are as outlined above. LABORATORY: White blood cell count is 7000, hematocrit 41.8. Platelets are normal. PT and PTT were normal on admission. Arterial blood gas done earlier today on 4 L of oxygen showed a pH of 7.47, pC O2 of 41, and PO2 83 with 96% saturation. Sodium is 139, potassium 3.5, BUN 15 with a creatinine of 0.6. Glucose is 162. Calcium is 8.2. Bilirubin is normal. AST and ALT are mildly elevated at 64 a nd 58 respectively. BNP is elevated at 1660. TSH was low, albumin is 3.1. ASSESSMENT: 1. Bilateral scattered relatively diffuse pulmonary infiltrates. This is consistent with an atypica l pneumonia, possible influenza, possibly bacterial. Respiratory panel will be drawn. Sputum cultur e will be obtained if possible. Current antibiotics will be continued. The patient has refused [place] flu; however, she is past the window where Tamiflu would likely be of benefit at this point anyway. Oxygen requirements are significant. She will be kept in the intensive care unit for close monitorin g and observation. Chest x-ray will be followed. 2. History of asthma. She is on bronchodilator therapies. These will be continued. She is on stre ss steroid coverage. She does not have significant wheezing. Higher doses of steroids would not jimbo ear to be indicated currently. 3. History of possible restrictive lung disease by history secondary to underlying neurologic proble ms. This may be contributing to her hypoxemia and lack of pulmonary reserve. No specific treatment is indicated at this time. BiPAP could be considered if respiratory status deteriorates. 4. History of multiple medical problems, some which are unusual, as outlined above. Her usual outpa tient medications will be continued. Hydrocortisone is being given 25 mg IV q.2 hours for a total of 300 mg per day. Further plans and recommendations will be made based on her progress over the next 12-24 hours. /[id number]/MODL
[2018-06-30] MEDS ORDERED: POTASSIUM CL 10 MEQ TAB PO ONE (19:50)
[2018-06-30] MEDS: traMADol 50 MG TAB PO PRN (21:28)
[2018-06-30] MEDS: Naltrexone 4.5mg 4.5 MG PO SCH (21:31)
[2018-06-30] MEDS: AZITHROMYCIN IV 500 MG in NS 250 ML IV SCH (21:44)
[2018-06-30] MEDS ORDERED: NAPROXEN SODIUM 220 MG TAB PO PRN (22:07)
[2018-06-30] MEDS: PROGESTERONE,MICR 100 MG CAP PO SCH (22:24)
[2018-07-01] MEDS: HYDROCORTISONE 100 MG/2 ML VIAL IVP SCH ×11 (01:09→20:10)
[2018-07-01] MEDS: IPRATROPIUM/ALBUTEROL 3 ML DEYVIAL IH SCH ×4 (04:24→21:27)
[2018-07-01 05:53] LABS: PLATELET COUNT 204 10^3/uL (150-400)
[2018-07-01] MEDS ORDERED: LEVOTHYROXINE 125 MCG TAB PO SCH (06:00)
[2018-07-01] MEDS: DEXMETHYLPHENIDATE HCL 10 MG PO SCH ×3 (08:04→15:17)
[2018-07-01] MEDS: OSELTAMIVIR PHOSPHATE 75 MG CAP PO SCH ×2 (08:05→17:34)
[2018-07-01] MEDS: ENOXAPARIN 40 MG/0.4 ML SYR SC SCH (08:06)
[2018-07-01] MEDS: ADVAIR IH SCH ×2 (08:06→21:28)
[2018-07-01] MEDS: DESMOPRESSIN 0.1 MG TAB PO SCH ×2 (08:11→21:54)
[2018-07-01] MEDS: NALTREXONE PO SCH (08:14)
--- NOTE | 2018-07-01 08:25 | HOSPPROG ---
Hospitalist Progress Note Assessment/Plan: #AHRF - 2/2 Influenza and suspect pulmonary edema yesterday, possibly hastened by severe hypertension in setting of pt's self dosing of IV hydrocortisone to dangerous doses of up to 600 mg daily. CXR this am pers reviewed/interp- persistent bibasilar infiltrates. Initial issue is likely viral vs. post-viral PNA in setting of Influenza. PCT neg. ABG ok. -short course atbx, day 4 ceftriaxone/azithro -S/P IV Lasix yest, lung exam improved today, O2 needs down from 10 LPM to 5 LPM -could try bipap if status worsens -pulm following, appreciate assistance #Influenza A (Acute) - diagnosed prior admission, received tamiflu which pt declined at dc, did not complete course - Pt has refused tamiflu - cont nebs, supportive care #Asthma exacerbation: cont steroids, Duonebs, Advair #Hypertensive urgency: SBP >220 at times. She attributes to steroids and I agree her egregious IV hydrocortisone self-dosing was causing harm. Says she has anaphylaxis to all anti-hypertensives and refuses to let us treat her hypertension. - declines antihypertensives. She was counseled on risks of CVA/NJ and she accepts risks - we have confiscated her IV hydrocortisone due to self dosing and potential self-harm as directed by her endocrinology team in [place], see below #Tachycardia - ?due to PNA vs high steroid dose, no other SIRS - Continue to monitor #Adrenal Insufficiency - on continuous solucortef pump Rx'd by CHIEF DIETITIAN in [place]. She is reportedly a hypermetabolizer of HC and requests a drip. Despite 300 mg IV hydrocortisone daily (25 mg IV q2h), she wants another 150 mg additional. I do not believe she is in adrenal crisis and am concerned that further increasing her HC could pose harm as she has been hypertensive and tachycardic, which may have contributed to flash pulmonary edema yesterday. - discussed with dr. raina dominique yesterday, founder and president in [place] (partner of pt's primary endo Dr. Jamal Phillips). Per his notes, she should take 36 mg / d thru pump and is instructed to increase to 84 mg for sick dose. they acknowledge she is self dosing in [place] and they are also concerned she is causing self harm. - Dr. Dominique recommended d/c'ing / confiscating pump and her home HC vials and order IV HC 100 mg q8h - I have tried to work with this pt and have agreed to provide 25 mg HC q2h, which is same dose as 100 q8h, but more frequent as she believes she is a rapid metabolizer - discussed with pulm, we both agree there is no indication to increase steroids and that further dosing could cause harm. Will cont current dose. Hypothyroidism - TSH undetectable, discussed with endocrinology yest. They recommended changing to levothyroxine. Pt absolutely refuses this and demands I resume her armour thyroid. Her T3, T4 are normal, therefore I will oblige her request. Potassium replacement - pt requesting 40 mEqs KCl five times daily despite serum K of 4 this am. - agreed to order 40 mEq's TID and will follow K level BID, hold if K is on the rise as we don't want to provoke hyperkalemia given the strain her heart has with untreated hypertension and tachycardia FEN: IVF, Regular DVT PPx: Lovenox Code: FULL Dispo: cont inpt / SDU due to ongoing O2 needs, tachycardia, hypertension, and respiratory failure. If pt opts to leave AMA, will advise against this, safety counselor on risk of from respiratory failure / hypoxemia, NJ or CVA in setting of untreated hypertension. I would try to provide O2 at d/c if she leaves AMA for harm reduction purposes. Subjective: Pt is upset this am. Wants more potassium despite normal K level. Wants her armour thyroid despite undetectable TSH and endocrinology recommendation to stop this medication. Wants increased cortisol dose despite severe hypertension, tachycardia and no e/o adrenal crisis. Again, her endocrinoloy team advises against increased steroid dose. We both acknowledge she is breathing better today. Denies CP or SOB. Still coughing a bit. No fevers. No N/V. Objective: Vital Signs Temp Pulse Resp BP Pulse Ox 36.9 C 112 H 20 186/104 H 95 07/01/18 07:34 07/01/18 07:34 07/01/18 07:34 07/01/18 07:34 07/01/18 07:34 Laboratory Results 07/01/18 05:40 07/01/18 05:40 06/30/18 07/01/18 07/02/18 05:59 05:59 05:59 Intake Total 2255 Output Total 2150 Balance 105 PT 12.2 SEC (12.0-15.0) 06/27/18 18:30 INR 0.94 (0.83-1.16) 06/27/18 18:30 - Physical Exam Constitutional: no apparent distress Eyes: PERRL Ears, Nose, Mouth, Throat: moist mucous membranes Cardiovascular: tachycardia Respiratory: no respiratory distress, reduced air movement, other (faint b/l crackles, improved since yesterday) Gastrointestinal: normoactive bowel sounds, soft, non-tender abdomen Skin: warm Musculoskeletal: full muscle strength Neurologic: AAOx3 Psychiatric: anxious, poor judgement ICD10 Worksheet Patient Problems: Problems Problem Status Onset Influenza A Acute
[2018-07-01] MEDS: POTASSIUM CL 20 MEQ TAB PO SCH ×3 (08:58→21:57)
[2018-07-01] MEDS: ONDANSETRON 4 MG/2 ML VIAL IVP PRN (13:17)
[2018-07-01] MEDS ORDERED: methylPREDNISolone SOD SUCC 40 MG/ML VIAL IVP ONE (15:00)
--- NOTE | 2018-07-01 15:08 | ASMTCMCOM ---
CM Note CM Note Notes: Pt care discussed in rounds and with RN and charge nurse. Pt continues to use 6LO2. Pt's and daughter are supportive, anticipate pt will likely be independent at discharge with outpatient follow-up as indicated. CM available if needs arise. Plan: Anticipate Independent with follow-up as indicated Date Signed: 07/01/2018 03:07 PM Electronically Signed By:ALLEN Armenta
--- NOTE | 2018-07-01 15:12 | PDINTPN ---
Patient Access Coordinator Progress Note Assessment/Plan: Assessment/plan: * Diffuse pulmonary infiltrates-atypical pneumonia. Likely viral * Acute hypoxemic respiratory failure-secondary to above. Improving. Oxygen required it is producing. -wean FiO2 as tolerated * History of asthma * Osteomyelitis of jaw * Influenza A * Hypertensive urgency * Tachycardia * Adrenal insufficiency-patient was on a continue Solu-Cortef pump prescribed by her nurse practitioner in [place]. She is currently on 25 mg Solu- Cortef q.2 hours. Her early childhood associate teacher [place] has recommended 84 mg per day 3 pump daily and to increase to 84 mg for sick dose. Family is currently requesting increase in dose. -will increase dose to 50 mg q.2 hours -agree with early childhood associate teacher consult and will abide by their recommendations. Subjective: Somnolent Objective: Vital Signs Temp Pulse Resp BP Pulse Ox 36.7 C 119 H 21 H 182/128 H 97 07/01/18 12:12 07/01/18 14:24 07/01/18 14:24 07/01/18 14:24 07/01/18 14:24 Microbiology 06/30/18 10:30 Respiratory Panel (PCR) - Final Nasal, Sinus - Swab Influenza Virus Type A 2009 H1 Laboratory Results 07/01/18 05:40 07/01/18 05:40 06/30/18 07/01/18 07/02/18 05:59 05:59 05:59 Intake Total 2255 Output Total 2150 500 Balance 105 -500 PT 12.2 SEC (12.0-15.0) 06/27/18 18:30 INR 0.94 (0.83-1.16) 06/27/18 18:30 - Time Spent With Patient Time Spent With Patient: 45 min of time spent with patient, over 1/2 involved with coordination of care counseling. Case discussed with nursing, hospitalist Physical Exam - Physical Exam General Appearance: No alert EENT: PERRL/EOMI Neck: non-tender, supple Respiratory: crackles (Scattered), No respiratory distress, No stridor, No wheezing Cardiac/Chest: normal peripheral pulses, regular rate, rhythm Peripheral Pulses: 2+: carotid (R), carotid (L), femoral (R), femoral (L), dorsalis-pedis (R), dorsalis-pedis (L) Abdomen: normal bowel sounds, non-tender, soft Pelvic Exam: deferred Rectal: deferred Skin: normal color, warm/dry Extremities: normal range of motion, non-tender, normal inspection, normal capillary refill Neuro/Psych: No alert ICD10 Worksheet Patient Problems: Problems Problem Status Onset Influenza A Acute
[2018-07-01] MEDS ORDERED: HYDROCORTISONE 100 MG/2 ML VIAL IVP ONE (15:15)
[2018-07-01 20:37] VITALS: BP 204/123
[2018-07-01] MEDS ORDERED: HYDROCORTISONE 100 MG/2 ML VIAL IM SCH (21:00)
--- NOTE | 2018-07-01 21:18 | PDHOMEO2F ---
Home Oxygen Face to Face Home Orders: I certify that a physician or a nurse practitioner or physician's team assistant has had a [id number] encounter with this patient on the date of this order due to the diagnosis listed, which relates to the primary reason the patient requires home oxygen. Alternative treatments have been tried, or considered, and deemed ineffective. It is anticipated that supplemental oxygen will result in improvement with treatment. Home oxygen qualifying diagnosis: pulmonary edema Home oxygen secondary diagnosis: influenza SpO2 on room air (%): 88 Frequency of home oxygen needed: continuous Home oxygen liters per minute: 2L Home oxygen delivery device: nasal cannula Concentrator: Yes E-tanks for mobility and back up: Yes If ordering portable O2, is the patient mobile in the home?: Yes I certify that, based on these findings, the home oxygen is medically necessary for this patient for the following length of time. Length of time home oxygen needed: 1 month
[2018-07-01] MEDS: HYDROCORTISONE 100 MG/2 ML VIAL IM SCH ×2 (21:50→23:01)
[2018-07-01] MEDS: Naltrexone 4.5mg 4.5 MG PO SCH (21:55)
[2018-07-01] MEDS: PROGESTERONE,MICR 100 MG CAP PO SCH (22:16)
--- NOTE | 2018-07-01 23:23 | HOSPPROG ---
Hospitalist Progress Note Assessment/Plan: Cross cover note: Called by nursing that patient is threatening to leave AMA, reviewed care plan with acupressurist and reviewed Dr. White note. Patient not happy with her care plan, would like higher doses of steroids, higher doses of potassium and that we place a PICC line. On review with endocrinology and notes, feel that placing a PICC places patient at higher risk given her history of misusing her IV access and administering herself medications so will not do that at this time. Transitioned to oral abx with azithromycin and IM steroids, dosing recommended by endocrinology. Printed prescriptions and ordered home oxygen in case patient decides to leave AMA. Objective: Vital Signs Temp Pulse Resp BP Pulse Ox 37.1 C 113 H 25 H 204/123 H 87 L 07/01/18 15:49 07/01/18 20:00 07/01/18 20:00 07/01/18 20:00 07/01/18 21:26 Microbiology 06/30/18 10:30 Respiratory Panel (PCR) - Final Nasal, Sinus - Swab Influenza Virus Type A 2009 H1 Laboratory Results 07/01/18 05:40 07/01/18 05:40 06/30/18 07/01/18 07/02/18 05:59 05:59 05:59 Intake Total 2255 Output Total 2150 800 Balance 105 -800 PT 12.2 SEC (12.0-15.0) 06/27/18 18:30 INR 0.94 (0.83-1.16) 06/27/18 18:30 ICD10 Worksheet Patient Problems: Problems Problem Status Onset Influenza A Acute
[2018-07-02] MEDS: HYDROCORTISONE 100 MG/2 ML VIAL IM SCH (00:07)
--- NOTE | 2018-07-02 08:30 | GCON ---
[f rep st] CONSULTATION HOSPITAL CONSULT DATE OF CONSULTATION: 07/01/2018 REASON FOR CONSULTATION: Evaluation and management of hypothyroidism and adrenal insufficiency. HISTORY OF PRESENT ILLNESS: The patient is a 57-year-old woman who was admitted to the hospital on June 27 for influenza and secondary pneumonia. She has multiple endocrine diagnoses including hypothyroidism, diabetes insipidus, adrenal insufficiency, menopause. 1. Adrenal insufficiency. The patient reports that she has both 3-beta- hydroxylase deficiency and 30-lccz-cxytbcidbej deficiency, which is the cause of her adrenal insufficiency. She reports that this was diagnosed approximately 5 years ago. She reports an allergy to prednisone with an unspecific reaction. Her diagnosis was made by either a baling machine tender in [place] or a nurse practitioner in [place], the exact history of this diagnosis was not clear to me during her interview. She is currently managed with a subcutaneous insulin pump dispensing subcutaneous hydrocortisone. Per her driver license agent's notes at [facility], her usual daily dose is 36 mg of hydrocortisone per day with a stress dose of 84 mg per day. The patient reports that she is typically on 50-75 mg per day. She states that, during previous hospitalizations, she has required as much as 600-700 mg of hydrocortisone per day for adrenal insufficiency. She states that she is a "rapid metabolizer" of hydrocortisone, which is the reason for her insulin pump use off label and for her higher doses of steroids during critical illnesses. I asked what her definition of an adrenal crisis is, and to her, this includes unresponsiveness, seizure, tachycardia, sweating, muscle cramps. She reports that she had an adrenal crisis (earlier today from 2 to 3:30 p.m.). Her family at the bedside, her and daughter and son-in-law, contribute to the history and report a period of 1.5 hours where she was unresponsive and having a seizure. They report that, when her dose was increased from 25 mg of hydrocortisone IM q.2h. to 50 mg of hydrocortisone IM q.2h., her crisis resolved and she was able to sit up and answer questions and eating dinner. 2. Hypothyroidism. The patient reports that this was diagnosed initially about 20 years ago. She initially reports that her hypothyroidism was tertiary but states that, when she was diagnosed, her TSH was elevated and her T4 and T3 were low, (which is consistent with primary hypothyroidism). She states that she has always had negative thyroid antibodies and does not have Hilton thyroiditis. She prefers [place] Thyroid and is currently taking 180 mg 1 Tab p.o. daily. Her predicted weight-based dose would be closer to 75 mg of [place] Thyroid. Her most recent thyroid labs on June 30 showed an undetectable TSH of less than 0.015, free T4 of 1.3, total T3 of 1.07. The patient states that her TSH has been undetectable for many years. She has been treated for hypothyroidism with both a baling machine tender in [place] and a nurse practitioner in [place]. 3. Diabetes insipidus. The patient reports that she was diagnosed with diabetes insipidus approximately 2.5 years ago based on low ADH levels. She takes DDAVP 0.1 mg p.o. q.a.m. and 0.2 mg p.o. q.h.s. She states that the cause of her diabetes insipidus was attributed to her history of childhood trauma. She denies any loss of consciousness due to brain injury but did also have a facial fracture as a child, which could have caused a traumatic brain injury. 4. Menopause. She states that she has been low in testosterone in the past, which is why she is doing a topical compounded product with Biest-estriol- testosterone topically in addition to progesterone 100 mg p.o. q.h.s. for menopause. She states that she has not been doing her topical compounded hormones as an inpatient and reports that she is having some urinary symptoms, hot flashes, increased sweating because of this. She is also using naltrexone, low dose, to combat inflammation. She reports that the low-dose naltrexone has decreased her inflammatory muscle aches by 80% . She has also been seen by Dr. Jamal Phillips who is in the endocrine department at [facility]. The hospitalist's notes report a conversation with Dr. Phillips's partner, Dr. Marian Neal, and those notes reflect the endocrinologists in [facility]'s concerns about the patient's high doses of steroids and high dose of [place] Thyroid, with concerns about potential complications from those. PAST MEDICAL HISTORY: 1. Adrenal insufficiency, unsure if primary versus secondary. 2. Hypothyroidism, primary. 3. Diabetes insipidus. 4. Menopause. 5. Asthma. FAMILY HISTORY: Patient denies any family history of thyroid disorders, diabetes insipidus, adrenal insufficiency. SOCIAL HISTORY: Patient is and has an adult daughter here. REVIEW OF SYSTEMS: All other systems were reviewed and were negative except as per HPI. PHYSICAL EXAMINATION: VITAL SIGNS: Temp 37.1, pulse 109, respiratory rate 20, O2 level is 93% on 4 L of O2 per nasal cannula. Blood pressure is 196/113. Weight is 84.1 kg. GENERAL: At the beginning of the interview, the patient was alert, oriented x3, and in no acute distress. She was surrounded by her daughter, son-in-law, and in the hospital room. HEENT: Normocephalic, atraumatic. Pupils equal, round, reactive to light and accommodation, wearing glasses and O2 per nasal cannula. Neck had increased circumference. No palpable thyromegaly or thyroid nodules were noted on exam today. She had no facial hirsutism noted. She did have round facies and fullness noted. I did not see excess dorsocervical adipose tissue or acanthosis nigricans on her neck. HEART: Tachycardic, no murmurs noted. LUNGS: Decreased breath sounds anteriorly, no wheezes noted. ABDOMEN: Soft, nontender, nondistended. Bowel sounds were positive. EXTREMITIES: She had moderate pitting edema in both lower extremities at the ankles with compression devices on both lower extremities. Both upper extremities had some bruising from IVs and blood draws. SKIN: No hyperpigmentation noted. Bruising noted at sites of IVs and blood draws. NEURO: No focal neurologic deficits noted. Gait was unable to be assessed. PSYCH: Patient became distressed during our interview. After I left the room, her came to get me, to say that she was having another seizure. I arrived after the movements in her extremities had stopped, and she was not responsive to questions and would not open her eyes on command. LABS: CBC shows a red blood cell count of 13.2, hematocrit of 41.8. BMP shows a sodium of 141, potassium 4.0, chloride 106, bicarb 29, BUN 28, creatinine 0.6 , blood glucose 165. Thyroid function tests are as mentioned above in the HPI. ASSESSMENT AND PLAN: 1. Adrenal insufficiency. I question the diagnosis of 44-fzxh-ybrsbhkehps deficiency and 6-ayqt-ihiqidlrjbg deficiency. This would have had to have been a nonclassic version, as it was not diagnosed at with ambiguous genitalia. The nonclassic versions generally present with hirsutism and oligomenorrhea if there is a partial enzyme deficiency, and she did not report that in her history. Subcutaneous hydrocortisone via an insulin pump is an experimental therapy. I did a literature review and found less than 100 patients reported in case reports, case series and one small randomized, double- blinded, placebo-controlled trial with use of continuous subcutaneous hydrocortisone infusion. These studies were all done in patients who were healthy and not critically ill. The doses reported ranged from 13 to 50 mg of hydrocortisone per day. The standard of care, according to the Endocrine Society guidelines published in the "Journal of Clinical Endocrinology and Metabolism" in May 2015, state that oral or IV hydrocortisone or prednisone are the standard of care. For an acute critical illness, an appropriate hydrocortisone dose is 200 mg IV for 24 hours. The patient reports that she is a rapid metabolizer of cortisol, and so I will increase the dose above the recommendations of the guidelines to 20 mg IM q.2h. to reflect this history. I found one study looking at the pharmacokinetics of two different doses of hydrocortisone in about 10 patients. A few patients were noted to be "fast metabolizers" and the authors of that study recommended more frequent doses of hydrocortisone not an increase in the total daily dose. Patient is currently lacking IV access, and so we will have to give the hydrocortisone intramuscular. Because of her illness, I would not recommend using hydrocortisone via a subcu insulin pump while in the hospital, since this is not the standard of care. According to the guidelines, subcutaneous insulin pump with continuous hydrocortisone infusion is an area for future research but needs to be studied in much greater detail before it can be recommended as usual therapy. Her episodes of adrenal crisis do not reflect a typical adrenal crisis, which typically presents with hypotension and possibly shock. She was given a dose of 50 mg of hydrocortisone IM, which has a quick onset of action, and this did not resolve her unresponsiveness. For this reason, I question whether the unresponsiveness is actually a symptom of a lack of cortisol. I will contact Dr. Jamal Phillips at [facility] and do a literature search to find possible case reports about rapid metabolism of hydrocortisone. Once the patient is deemed stable for discharge, she could be transitioned to oral hydrocortisone 25 mg p.o. q.8h. 2. Hypothyroidism. I will decrease the [place] Thyroid dose to 90 mg 1 Tab p.o. daily, as this is much closer to a weight-based replacement dose for hypothyroidism. I am concerned that excess thyroid hormone may contribute to a cardiac arrhythmia and may worsen her situation while she is acutely ill. Excess thyroid hormone may also increase her metabolism of cortisol. 3. Diabetes insipidus. Will continue her current dose of DDAVP 0.1 mg p.o. q.a.m. and 0.2 mg p.o. q.h.s. I would like to discuss this diagnosis with Dr. Phillips as well to find more details about how this diagnosis was made. 4. Menopause. Agree with continuing progesterone 100 mg p.o. q.h.s. to help with sleep. I would not recommend using the topical compounded hormone cream while she is an inpatient due to the increased risk of thromboembolism with that therapy. Thank you for this interesting consult. /[id number]/MODL MTDD
[2018-07-02] MEDS ORDERED: AZITHROMYCIN 250 MG TAB PO SCH (09:00)
--- NOTE | 2018-07-02 09:58 | ASDISCHSUM ---
Discharge Information Plan Status: Medically Cleared to Leave: Discharge Date:07/02/2018 12:22 AM CM D/C Disposition: ADT D/C Disposition:Against Medical Advice Projected Discharge Date:07/02/2018 12:22 AM Transportation at D/C: Discharge Delay Reason: Follow-Up Date:07/02/2018 12:22 AM Discharge Slot: Final Diagnosis: Placement Information Patient Contact Information Contact Name:CHER Relationship:Daughter Address: Home Phone: City: [facility] Phone: [facility]/Zip Code: Email: Financial Information Financial Class:Medicare Primary Plan Desc:MEDICARE INPATIENT Primary Plan Number:[id number] Secondary Plan Desc[facility] Secondary Plan Number:[id number] Assessment Information LACE LACE Length of stay for Answers: 4-6 days current admission Acuity / Level of Answers: Yes Care: Did the patient have an inpatient admission? Comorbidities - select Answers: Opioid dependence all that apply / Chronic pain Other Notes: Hypothyroid # of Emergency department Answers: 1-2 visits in the last 6 months Social determinants Answers: History of substance abuse (ETOH, street drugs, prescription drugs, etc.) Mental health diagnosis (anxiety, depression, pers onality disorders, etc.) Score: 19 Date Signed: 07/02/2018 09:57 AM Electronically Signed By:ALLEN Armenta [facility] CM Progress Note CM Note CM Note Notes: Spoke with pt and RN in the room. Pt here visiting daughter from [place] and admitted for influenza A and possible post viral PNA. Pt has steroid pump for Adrenal insufficiency. PT and OT both cleared pt for discharge home independently. CM to follow. D/C Plan: Independent to daughter's home Date Signed: 06/28/2018 04:34 PM Electronically Signed By:Dorcas Tolbert [facility] CM Progress Note CM Note CM Note Notes: Pt care discussed in rounds and with RN and charge nurse. Pt continues to use 6LO2. Pt's and daughter are supportive, anticipate pt will likely be independent at discharge with outpatient follow-up as indicated. CM available if needs arise. Plan: Anticipate Independent with follow-up as indicated Date Signed: 07/01/2018 03:07 PM Electronically Signed By:ALLEN Armenta Case Management Discharge Plan Note Case Management Discharge Discharge Order Complete? Answers: Yes Discharge Comments Notes: Pt left AMA last night. Date Signed: 07/02/2018 09:57 AM Electronically Signed By:ALLEN Armenta Intervention Information Intervention Type:*IM-Signed Date of Service:06/28/2018 02:52 PM Patient Type:Inpatient Staff Member:Krysta Wade Hours: Discipline: Severity: Comment:
[2018-07-02] MEDS ORDERED: THYROID 60 MG TAB PO SCH (10:00)
--- NOTE | 2018-07-07 09:49 | PDDCSUM ---
Discharge Summary Discharge Summary: Please note patient discharged against medical advice and this physician had not been personally involved in her care and had not met her during her hospitalization prior to her leaving AMA. Did review her notes and discuss with gis geographer is consultant. Dates of service 06/27-07/01/18 Consultations: pulmonary, endocrinology Procedures: chest CTA/echo Hospital course by problem: 57 yo F presenting with adrenal insufficiency, hypertensive urgency, influenza pna and acute hypoxic respiratory failure in the settingo f being on a continuous solucortef pump at [facility] that was prescribed by an out of state [employer] for unclear reasons. #AHRF - 2/2 Influenza and suspect pulmonary edema, possibly hastened by severe hypertension in setting of pt's self dosing of IV hydrocortisone to dangerous doses of up to 600 mg daily. CXR w/ persistent bibasilar infiltrates. Initial issue is likely viral vs. post-viral PNA in setting of Influenza. PCT neg. ABG ok. -short course atbx, day 4 ceftriaxone/azithro--patient left ama but rx for completed course of azithro sent in for her, unclear if she took it --given rx for oxygen at home #Influenza A (Acute) - diagnosed prior admission, received tamiflu which pt declined at [facility], did not complete course - Pt has refused tamiflu - cont nebs, supportive care #Asthma exacerbation: cont steroids, Duonebs, Advair #Hypertensive urgency: SBP >220 at times. She attributes to steroids and I agree her egregious IV hydrocortisone self-dosing was causing harm. Says she has anaphylaxis to all anti-hypertensives and refuses to let us treat her hypertension. - declines antihypertensives. She was counseled on risks of CVA/GA and she accepts risks - we have confiscated her IV hydrocortisone due to self dosing and potential self-harm as directed by her endocrinology team in [place], see below #Tachycardia - ?due to PNA vs high steroid dose, no other SIRS - Continue to monitor #Adrenal Insufficiency - on continuous solucortef pump Rx'd by [employer] in [place]. She is reportedly a hypermetabolizer of HC and requests a drip. Despite 300 mg IV hydrocortisone daily (25 mg IV q2h), she wants another 150 mg additional. - Dr. Austin reports speaking with dr. raina neal yesterday, gis geographer in [place] (partner of pt's primary endo Dr. Jamal Phillips). Per his notes, she should take 36 mg / d thru pump and is instructed to increase to 84 mg for sick dose. they acknowledge she is self dosing in [place] and they are also concerned she is causing self harm. - Dr. Neal recommended d/c'ing / confiscating pump and her home HC vials and order IV HC 100 mg q8h - endocrinology is consultant saw patient here and agreed that her dose should not be increased, patient unhappy with that assessment likely contributed to her decision to leave AMA Hypothyroidism - TSH undetectable, discussed with endocrinology yest. They recommended changing to levothyroxine. Pt absolutely refuses this and demands I resume her armour thyroid. Her T3, T4 are normal, therefore I will oblige her request. Potassium replacement - pt requesting 40 mEqs KCl five times daily despite serum K of 4 this am. - refused further dosing of her already normal K level FEN: IVF, Regular DVT PPx: Lovenox Code: FULL DC AMA Again, I was not personally involved in her care during her stay, informed by nursing that she was leaving and attempted to facilitate getting her set up for oxygen at home, unclear if she did that, unclear what her f/u will be, suspect she may have transferred to another hospital
== END 2018-07-02 00:22 | disposition left against medical advice (07) | DRG 193 ==
LOC: F3N 22:23 → F2N 06-30 10:02
PROVIDERS: ADMIT Internal Medicine; ATTEND Hospitalist
DX: J10.01 Influenza due to other identified influenza virus with the same other identified influenza virus pneumonia (principal); R09.02 Hypoxemia; T38.0X1A Poisoning by glucocorticoids and synthetic analogues, accidental (unintentional), initial encounter; J81.0 Acute pulmonary edema; J96.01 Acute respiratory failure with hypoxia; J45.901 Unspecified asthma with (acute) exacerbation; E27.40 Unspecified adrenocortical insufficiency; I16.0 Hypertensive urgency; E03.9 Hypothyroidism, unspecified; Z79.52 Long term (current) use of systemic steroids; Z78.0 Asymptomatic menopausal state; F41.9 Anxiety disorder, unspecified; B60.0 Babesiosis
CPT/HCPCS: 84480-90; 84484-ER; 87449-90; 96374; 97116-GP; 97161-GP; 97165-GO; 97530-GO; J0360; J0456; J0696; J1650; J1720; J1940; J2405; J2920; Q9967